=== PATIENT | male | born 1985 | race Caucasian/White ===

== ENCOUNTER 2016-12-27 07:51 | Emergency (ER) | payer MEDICARE, OTHER ==
[2016-12-27 08:01] VITALS: BP 161/101
[2016-12-27] MEDS ORDERED: COLCHICINE 0.6 MG TABLET PO ONE (08:25)
[2016-12-27] MEDS ORDERED: PREDNISONE 20 MG TABLET PO ONE (08:25)
[2016-12-27] MEDS ORDERED: HYDROCODONE/ACETAMINOPHEN 5-325 MG 6 TAB/DSPK PO PRN (08:26)
[2016-12-27] MEDS ORDERED: HYDROCODONE/ACETAMINOPHEN 5-325 MG TABLET PO ONE (08:26)
--- NOTE | 2016-12-27 08:26 | ER Document Report ---
ED Extremity Problem, Lower - General Mode of Arrival: Ambulatory Information source: Patient TRAVEL OUTSIDE OF THE [place] IN LAST 30 DAYS: No - HPI Patient complains to provider of: Pain, Swelling - bilateral lower feet and ankles Location: Ankle - bilateral, Foot - bilateral Occurred: Last week Context: Other - see notes above Associated symptoms: Other - see notes above - General Chief Complaint: Swelling of Lower Extremity Stated Complaint: FOOT PAIN Notes: 31 year old male with history of gout and unmedicated hypertension presents to the ED complaining of throbbing pain and swelling to the bilateral ankles and feet that started 1 week ago. Patient is concerned that this is a gout attack and states that his left foot and ankle are worse than his right. Patient does not have a primary care provider and is not on any medication for gout or hypertension. Patient additionally complains to diarrhea. (CHUYITA LUGO) - Related Data Allergies/Adverse Reactions: sertraline HCl [From Zoloft] Allergy (Severe, Verified 09/11/16 09:59) Past Medical History - General Information source: Patient - Social History Smoking Status: Unknown if Ever Smoked Family History: Reviewed & Not Pertinent Patient has suicidal ideation: No Patient has homicidal ideation: No - Past Medical History Cardiac Medical History: Reports: Hx Hypertension - unmedicated Renal/ Medical History: Denies: Hx Peritoneal Dialysis Musculoskeltal Medical History: Reports Hx Gout Psychiatric Medical History: Reports: Hx Bipolar Disorder, Hx Depression, Hx Schizoaffective Disorder, Hx Schizophrenia Past Surgical History: Reports: Hx Orthopedic Surgery - Lumbar back surgery, patient does not know what the specific procedure was. - Immunizations Hx Diphtheria, Pertussis, Tetanus Vaccination: No - unknown Review of Systems - Review of Systems Constitutional: No symptoms reported EENT: No symptoms reported Cardiovascular: No symptoms reported Respiratory: No symptoms reported Gastrointestinal: No symptoms reported Genitourinary: No symptoms reported Male Genitourinary: No symptoms reported Musculoskeletal: See HPI, Gout, Joint pain - bilateral ankles, Joint swelling - bilateral ankles, Other - bilateral feet pain and swelling Skin: No symptoms reported Hematologic/Lymphatic: No symptoms reported Neurological/Psychological: No symptoms reported -: Yes All other systems reviewed and negative Physical Exam - General General appearance: Alert In distress: None - HEENT Head: Normocephalic, Atraumatic Eyes: Normal Extraocular movements intact: Yes Pupils: PERRL - Respiratory Respiratory status: No respiratory distress Breath sounds: Normal - Cardiovascular Rhythm: Regular Heart sounds: Normal auscultation - Abdominal Inspection: Obese - Back Back: Normal - Extremities General upper extremity: Normal inspection, Normal ROM General lower extremity: No: Normal inspection - see ankle and foot exam below Ankle: Tender - Bilateral ankle tenderness. Left ankle is more tender than right., Edema - Bilateral ankle swelling. Left ankle is more swollen than right. , Other - Erythema to the bilateral ankles; left greater than right.. No: Normal Foot: Tender - Tender of the bilateral dorsal feet. Left greater than right., Edema - Swelling to the bilateral feet with notable swelling to the 1st left MTP joint. Left greater than right., Other. No: Normal - Neurological Neuro grossly intact: Yes - Psychological Associated symptoms: Normal affect, Normal mood - Skin Skin Temperature: Warm Skin Moisture: Dry Skin Color: Normal - Vital signs Vitals: Temp Pulse Resp BP Pulse Ox 99.2 F 112 H 18 161/101 H 98 12/27/16 07:58 12/27/16 07:58 12/27/16 07:58 12/27/16 07:58 12/27/16 07:58 Discharge - Discharge Clinical Impression: Gout attack Qualifiers: Gout site: multiple sites Gout etiology: unspecified cause Qualified Code(s): M10.9 - Gout, unspecified Additional Instructions: Gout: You have been diagnosed as having gout. Gout is a problem caused by an excess of uric acid, a natural chemical found in the body. The cause of this disease is unknown. Gout arthritis occurs when crystals of uric acid form in the joints. The big toe is the most common joint involved, but any joint can become affected. Persons with gout may also form uric acid kidney stones, resulting in flank pain and blood in the urine. Nodules of uric acid may form under the skin. The first step of treatment is to decrease the inflammation in the joint with antiinflammatory medication. Medication to lower the uric acid level in the blood may then be prescribed. This medication should be taken regularly, as any sudden change in dosage may provoke an attack of gout. Some foods, such as red meat, can provoke an attack in some gout sufferers. Call the doctor if new symptoms arise, or if you do not improve. High Blood Pressure, Requiring Treatment: Your blood pressure is high. This is called "hypertension." You need treatment of your blood pressure. Pre-hypertension/Hypertension: The patient has been informed that they may have pre-hypertension or Hypertension based on a blood pressure reading in the emergency department. I recommend that the patient call the primary care provider listed on their dischargge instructions or a physician of their choice this wee to arrage follow up for further evaluation of possible pre- hypertension or Hypertension. If left untreated, high blood pressure greatly increases your risk of heart attack and stroke. Please don't ignore this problem. If you have blood pressure medicine but aren't using it regularly, start taking it again. Some simple things you can do to help are: Get some aerobic exercise for at least 20 minutes on a daily basis. (See your doctor before beginning any new exercise program.) Eat a low-fat diet. Lose excess weight. Avoid salty foods and avoid adding salt to any of the foods you eat. Avoid diet pills, decongestants, "energizing" herbs, and other medicines that elevate blood pressure. There are many different medicines that treat blood pressure. If your medication causes unpleasant side effects, call your doctor. There are others you can try. Treating hypertension is a life-long investment in your health. TAKE THE MEDICATION PRESCRIBED--START THE PREDNISONE TOMORROW MORNING. TAKE MOTRIN OR ALEVE FOR PAIN. TAKE THE PAIN MEDICATION DISPENSED TODAY IF NEEDED. DRINK PLENTY OF WATER. ELEVATE THE FEET AND LIMIT WALKING. FOLLOW UP WITH A LOCAL PRIMARY CARE PROVIDER TO TREAT YOUR GOUT AND HIGH BLOOD PRESSURE. RETURN TO THE EMERGENCY ROOM IF ANY NEW OR WORSENING SYMPTOMS. Prescriptions: Prednisone [Deltasone 10 mg Tablet] 10 mg PO ASDIR PRN #21 tablet PRN Reason: Akbaribe Attestation: 12/27/16 08:31 I personally performed the services described in the documentation, reviewed and edited the documentation which was dictated to the scribe in my presence, and it accurately records my words and actions. (BATSHEVA KHOURY) Scott Documentation - Scribe Written by Scott:: Scott Kumar, 12/27/2016 0848 acting as scribe for :: Chandrika
== END 2016-12-27 08:40 | disposition home or self-care (01) ==
LOC: ER 07:51
DX: M10.9 Gout, unspecified (principal); M79.89 Other specified soft tissue disorders; M79.672 Pain in left foot; R19.7 Diarrhea, unspecified; I10 Essential (primary) hypertension
CPT/HCPCS: 99283; A9270 ×4; J7512

== ENCOUNTER 2017-05-04 08:30 | Emergency (ER) | payer MEDICARE, MEDICAID ==
[2017-05-04 09:23] LABS: ABSOLUTE BASOPHILS # (AUTO) 0.1 10^3/uL (0.0-0.2); ABSOLUTE EOSINOPHILS # (AUTO) 0.4 10^3/uL (0.0-0.6); ABSOLUTE NEUT (AUTO) 9.8 10^3/uL (1.7-8.2); BASOPHILS % (AUTO) 0.4 % (0-2); EOSINOPHILS % (AUTO) 2.6 % (0-6); HEMATOCRIT 45.2 % (37.9-51.0); HEMOGLOBIN 15.3 g/dL (13.5-17.0); HGB HCT DIFFERENCE 0.7; LYMPHOCYTES % (AUTO) 30.6 % (13-45); MEAN CORPUSCULAR HEMOGLOBIN 29.5 pg (27.0-33.4); MEAN CORPUSCULAR HGB CONC 33.7 g/dL (32.0-36.0); MEAN CORPUSCULAR VOLUME 87 fl (80-97); MONOCYTES % (AUTO) 6.1 % (3-13); RED BLOOD COUNT 5.18 10^6/uL (4.35-5.55); RED CELL DISTRIBUTION WIDTH 13.5 % (11.5-14.0); SEGMENTED NEUTROPHILS % (AUTO) 60.3 % (42-78); WHITE BLOOD COUNT 16.3 10^3/uL (4.0-10.5)
[2017-05-04 09:30] LABS: APPEARANCE,URINE CLEAR; BILIRUBIN,URINE NEGATIVE (NEGATIVE); GLUCOSE, URINE NEGATIVE (NEGATIVE); KETONES,URINE NEGATIVE (NEGATIVE); LEUKOCYTE ESTERASE,URINE NEGATIVE (NEGATIVE); NITRITE,URINE NEGATIVE (NEGATIVE); PROTEIN,URINE 30 mg/dL (NEGATIVE); URINE SPECIFIC GRAVITY 1.003; UROBILINOGEN,URINE NEGATIVE mg/dL (<2.0)
[2017-05-04 09:49] LABS: ANION GAP 11 (5-19); BLOOD UREA NITROGEN 12 mg/dL (7-20); CARBON DIOXIDE 24 mmol/L (22-30); CHLORIDE 104 mmol/L (98-107); CREATINE KINASE 178 U/L (55-170); GLUCOSE 99 mg/dL (75-110); POTASSIUM 4.1 mmol/L (3.6-5.0); SODIUM 138.6 mmol/L (137-145)
--- NOTE | 2017-05-04 10:33 | RADIOLOGY REPORT (SQ) ---
EXAM DESCRIPTION: CT ABD/PELVIS NO ORAL OR IV COMPLETED DATE/TIME: 05/04/2017 10:11 am REASON FOR STUDY: flank pain COMPARISON: None. TECHNIQUE: CT scan of the abdomen and pelvis performed without intravenous or oral contrast. Images reviewed with lung, soft tissue, and bone windows. Reconstructed coronal and sagittal MPR images revi ewed. All images stored on PACS. All CT scanners at this facility use dose modulation, iterative reconstruction, and/or weight based d osing when appropriate to reduce radiation dose to as low as reasonably achievable (ALARA). [facility]: Dose Right [facility]: CareDose [facility]: Dose Right [facility]: Teradose 4D [facility]: Smart Acrolinx RADIATION DOSE: Up-to-date CT equipment and radiation dose reduction techniques were employed. CTDIv ol: 20.8 mGy. DLP: 1233 mGy-cm.mGy. LIMITATIONS: None. FINDINGS: LOWER CHEST: No significant findings. No nodules or infiltrates. NON-CONTRASTED LIVER, SPLEEN, ADRENALS: Evaluation limited by lack of IV contrast. No identified sign ificant masses. PANCREAS: No masses. No peripancreatic inflammatory changes. GALLBLADDER: No identified stones by CT criteria. No inflammatory changes to suggest cholecystitis. RIGHT KIDNEY AND URETER: No solid masses. No significant calcification. No hydronephrosis or hydroure ter. LEFT KIDNEY AND URETER: No solid masses. No significant calcification. No hydronephrosis or hydrouret er. AORTA AND RETROPERITONEUM: No aneurysm. No retroperitoneal masses or adenopathy. BOWEL AND PERITONEAL CAVITY: No obvious masses or inflammatory changes. No free fluid. APPENDIX: Normal. PELVIS, BLADDER, AND ABDOMINAL WALL:The urinary bladder is normal. The prostate gland and seminal ve sicles are unremarkable. BONES: No significant findings. OTHER: No other significant finding. IMPRESSION: NO SIGNIFICANT OR ACUTE PROCESS IN THE ABDOMEN OR PELVIS. THERE ARE NO FINDINGS THAT EX PLAIN THE PATIENT'S SYMPTOMS. TECHNICAL DOCUMENTATION: JOB ID: [id number] Quality ID # [id number]: Final reports with documentation of one or more dose reduction techniques (e.g., Au tomated exposure control, adjustment of the mA and/or kV according to patient size, use of iterative reconstruction technique) 2010 [employer]- All Rights Reserved
[2017-05-04] MEDS ORDERED: CEFTRIAXONE INJ 250 MG VIAL IM ONE (10:43)
[2017-05-04] MEDS ORDERED: AZITHROMYCIN 250 MG TABLET PO ONE (10:44)
--- NOTE | 2017-05-04 10:52 | ER Document Report ---
ED General - General Chief Complaint: Flank Pain Stated Complaint: FLANK PAIN/URINARY ISSUES Time Seen by Provider: 05/04/17 09:19 Mode of Arrival: Ambulatory Information source: Patient - 2-3 days dysuria low back pain, no fever vomiting or history uti, kidney stones, or known std TRAVEL OUTSIDE OF THE [place] IN LAST 30 DAYS: No - HPI Onset: Other Onset/Duration: Gradual Quality of pain: Achy, Burning Severity: Mild Associated symptoms: denies: Chest pain, Nonproductive cough, Productive cough, Diarrhea, Fever, Nausea, Vomiting, Weakness Similar symptoms previously: No - Related Data Allergies/Adverse Reactions: sertraline HCl [From Zoloft] Allergy (Severe, Verified 09/11/16 09:59) Past Medical History - Social History Smoking Status: Never Smoker Chew tobacco use (# tins/day): No Frequency of alcohol use: None Drug Abuse: None Family History: Reviewed & Not Pertinent Patient has suicidal ideation: No Patient has homicidal ideation: No - Past Medical History Cardiac Medical History: Reports: Hx Hypertension - unmedicated Renal/ Medical History: Denies: Hx Peritoneal Dialysis Musculoskeltal Medical History: Reports Hx Gout Psychiatric Medical History: Reports: Hx Bipolar Disorder, Hx Depression, Hx Schizoaffective Disorder, Hx Schizophrenia Past Surgical History: Reports: Hx Orthopedic Surgery - Lumbar back surgery, patient does not know what the specific procedure was. - Immunizations Hx Diphtheria, Pertussis, Tetanus Vaccination: No - unknown Review of Systems - Review of Systems Constitutional: No symptoms reported Cardiovascular: No symptoms reported Respiratory: No symptoms reported Gastrointestinal: No symptoms reported Genitourinary: Burning, Dysuria Male Genitourinary: denies: Erectile dysfunction, Testicular pain, Penile discharge Musculoskeletal: No symptoms reported Skin: No symptoms reported Neurological/Psychological: No symptoms reported Physical Exam - Vital signs Vitals: Temp Pulse Resp BP Pulse Ox 97.5 F 73 20 142/98 H 97 05/04/17 08:42 05/04/17 08:42 05/04/17 08:42 05/04/17 08:42 05/04/17 08:42 - General General appearance: Appears well, Alert In distress: None - Respiratory Respiratory status: No respiratory distress Breath sounds: Normal Chest palpation: Normal - Cardiovascular Rhythm: Regular Heart sounds: Normal auscultation Murmur: No - Abdominal Inspection: Normal Distension: No distension. No: Distended bladder Bowel sounds: Normal Tenderness: Nontender. No: Tender, McBurney's point, Gonzalez's sign, Guarding, Rebound Organomegaly: No: No organomegaly - Back Back: Normal, Nontender. No: Deformity/step-off, CVA tenderness, Vertebra tenderness - Skin Skin Temperature: Warm Skin Moisture: Dry Skin Color: Normal Course - Re-evaluation Re-evalutation: 05/04/17 10:54 Patient presents emergency department with 2-3 day history of bilateral low back pain and dysuria. He states it is burning when he pees. He denies any history of urinary tract infection kidney stone or sexually transmitted diseases previously. He has no fever abdominal pain nausea vomiting diarrhea or anorexia and is actually requesting food on exam. Denies any previous ureteral tracker abdominal surgery. Is well-appearing nontoxic and afebrile on examination with no acute abdominal guarding rebound rigidity pulsatile masses reproducible flank or back tenderness and no neurological vascular deficits. White count slightly elevated urine trace blood no leukocyte esterase. GC chlamydia is pending. Electrolytes are normal lipase is normal. CT scan is nonacute. Differential diagnosis possible urethritis start him on Rocephin Zithromax. No acute clinical concerns for surgical abdomen. Gave him family doctor for follow-up in 1224 hrs. and discussed reasons for ED return sooner - Vital Signs Vital signs: Temp Pulse Resp BP Pulse Ox 97.5 F 73 20 142/98 H 97 05/04/17 08:42 05/04/17 08:42 05/04/17 08:42 05/04/17 08:42 05/04/17 08:42 - Laboratory Result Diagrams: 05/04/17 09:05 05/04/17 09:05 Laboratory results interpreted by me: 05/04/17 05/04/17 05/04/17 09:05 09:05 09:05 WBC 16.3 H Absolute Neutrophils 9.8 H Absolute Lymphocytes 5.0 H Creatine Kinase 178 H Urine Protein 30 H Urine Blood SMALL H Discharge - Discharge Clinical Impression: Dysuria Low back pain Qualifiers: Chronicity: unspecified Back pain laterality: unspecified Sciatica presence: without sciatica Qualified Code(s): M54.5 - Low back pain Condition: Stable Disposition: HOME, SELF-CARE Additional Instructions: dysuria (burning with urination) Urethritis You have possible urethritis, an infection of the urethra. The usual symptoms are pain on urination and discharge. The infection is often caused by gonorrhea or chlamydia. Treatment is antibiotics. In addition, any sexual contacts should be evaluated by a physician as soon as possible. As this infection can be transmitted sexually, refrain from sexual activity until the infection is confirmed as healed by your physician. If gonorrhea or chlamydia is found on culture, the health department must be notified. Call the doctor at once if you develop difficulty passing your urine, high fever, rash, joint swelling, or other new symptoms. Low Back Pain Three out of every four people will have an episode of disabling back pain during their lifetime. Most commonly the pain is due to straining of the muscles and ligaments in the low back. Usual treatment includes: (1) Rest on a firm surface. Avoid lying on your stomach. (2) Ice pack the painful area. After a few days, gentle heat may be used intermittently to relax the area, or ice packs can be continued. (3) Medication may be needed -- muscle relaxers and antiinflammatory medicines are commonly used. (4) As the back improves, exercises are prescribed to strengthen the back and abdominal muscles. Your doctor will advise you on the proper care for your back at each stage in your recovery. You may be better in a few days -- or healing may take several weeks. If new symptoms of a "herniated disc" (radiation of pain, numbness, or tingling down the back of the leg or weakness in the leg) occur, you should be re-examined. Further testing may be necessary. Referrals: [facility] [Provider Group] (in 2-3 days return to er sooner for increasing worsening or new symptoms)
[2017-05-04 11:04] VITALS: BP 140/90
[2017-05-04 12:22] LABS: CHLAM PCR NOT DETECTED (NOT DETECT)
== END 2017-05-04 11:04 | disposition home or self-care (01) ==
LOC: ER 08:30
DX: R30.0 Dysuria (principal); M54.5 Low back pain; R10.9 Unspecified abdominal pain; I10 Essential (primary) hypertension
CPT/HCPCS: 99284; 96372; 36415; 87086; 82553; 82550; 83690; 80178; 85025; 80048; 81001; 87491; 87591; 74176; A9270; J0696

== ENCOUNTER → 2018-04-05 | Outpatient (CLI) | payer MEDICARE ==
[2018-04-05 07:49] LABS: ABSOLUTE BASOPHILS # (AUTO) 0.1 10^3/uL (0.0-0.2); ABSOLUTE EOSINOPHILS # (AUTO) 0.4 10^3/uL (0.0-0.6); ABSOLUTE LYMPHOCYTES (AUTO) 4.8 10^3/uL (0.5-4.7); ABSOLUTE NEUT (AUTO) 10.3 10^3/uL (1.7-8.2); BASOPHILS % (AUTO) 0.6 % (0-2); EOSINOPHILS % (AUTO) 2.6 % (0-6); HEMATOCRIT 42.6 % (37.9-51.0); HEMOGLOBIN 14.3 g/dL (13.5-17.0); LYMPHOCYTES % (AUTO) 28.8 % (13-45); MEAN CORPUSCULAR HEMOGLOBIN 29.3 pg (27.0-33.4); MEAN CORPUSCULAR HGB CONC 33.5 g/dL (32.0-36.0); MEAN CORPUSCULAR VOLUME 87 fl (80-97); MONOCYTES % (AUTO) 5.9 % (3-13); PLATELET COUNT 397 10^3/uL (150-450); RED BLOOD COUNT 4.87 10^6/uL (4.35-5.55); RED CELL DISTRIBUTION WIDTH 13.5 % (11.5-14.0); SEGMENTED NEUTROPHILS % (AUTO) 62.1 % (42-78); TOTAL CELLS COUNTED % (AUTO) 100 %; WHITE BLOOD COUNT 16.6 10^3/uL (4.0-10.5)
[2018-04-05 08:31] LABS: ALANINE AMINOTRANSFERASE 26 U/L (21-72); ALBUMIN 3.6 g/dL (3.5-5.0); ALKALINE PHOSPHATASE 71 U/L (38-126); ANION GAP 12 (5-19); ASPARTATE AMINO TRANSFERASE 19 U/L (17-59); BILIRUBIN,DIRECT 0.3 mg/dL (0.0-0.4); BILIRUBIN,TOTAL 0.3 mg/dL (0.2-1.3); BLOOD UREA NITROGEN 14 mg/dL (7-20); CALCIUM 9.7 mg/dL (8.4-10.2); CARBON DIOXIDE 22 mmol/L (22-30); CHLORIDE 110 mmol/L (98-107); CHOLESTEROL 188.65 mg/dL (0-200); GLUCOSE 102 mg/dL (75-110); SODIUM 143.6 mmol/L (137-145); TOTAL PROTEIN 7.1 g/dL (6.3-8.2); TRIGLYCERIDES 385 mg/dL (<150)
[2018-04-05 08:42] LABS: DIRECT LDL 106 mg/dL (<100)
[2018-04-05 08:47] LABS: FREE T4 (FREE THYROXINE) 0.88 ng/dL (0.78-2.19)
[2018-04-05 09:01] LABS: THYROID STIMULATING HORMONE 5.73 uIU/mL (0.47-4.68)
[2018-04-05 09:16] LABS: LITHIUM 1.5 mEq/L (0.6-1.2)
== END ==
LOC: LAB 07:33
PROVIDERS: ATTEND Physician Assistant
DX: F31.2 Bipolar disorder, current episode manic severe with psychotic features (principal); Z79.899 Other long term (current) drug therapy
CPT/HCPCS: 36415; 80053; 80061; 80178; 84439; 84443; 85025

== ENCOUNTER 2018-04-14 07:50 | Inpatient (IN) | payer MEDICARE ==
[2018-04-14] MEDS ORDERED: COLCHICINE 0.6 MG TABLET PO ONE ×2 (08:30→14:00)
--- NOTE | 2018-04-14 08:30 | ER Document Report ---
ED General - General Chief Complaint: Foot Pain Stated Complaint: FOOT PAIN Time Seen by Provider: 04/14/18 08:28 Mode of Arrival: Ambulatory Information source: Patient TRAVEL OUTSIDE OF THE [place] IN LAST 30 DAYS: No - HPI Notes: 32-year-old male with a medical history of bipolar disorder with schizophrenia, schizoaffective affective disorder, schizophrenia and gout presents to the ED with complaints of left foot pain and swelling that started yesterday with knee pain that started a week prior. Patient reports pain is 8 out of 10 when he is walking on it, reports pain is throbbing. Tried Aleve without any relief. Patient is a smoker. States that he is having a gout flare but does not have any medications for it. Patient states he has not had a gout flare in "years". Reports he felt chills last night. Patient does not have a primary care doctor. Denies chest pain,palpitations, shortness of breath, dyspnea, nausea, vomiting, diarrhea, abdominal pain, hematuria,blurred vision, double vision, loss of vision, speech changes, LH, dizziness, syncope, headaches, wheezing, ST , URI, neck pain, weakness, bowel or bladder dysfunction, saddle anesthesia, numbness or tingling in bilateral upper or lower extremities equally, muscle paralysis, weakness in bilateral upper or lower extremities equally or rash. Denies IV drug use. - Related Data Allergies/Adverse Reactions: sertraline HCl [From Zoloft] Allergy (Severe, Verified 04/14/18 07:54) Past Medical History - General Information source: Patient - Social History Smoking Status: Current Every Day Smoker Family History: Reviewed & Not Pertinent - Past Medical History Cardiac Medical History: Reports: Hx Hypertension - unmedicated Renal/ Medical History: Denies: Hx Peritoneal Dialysis Musculoskeletal Medical History: Reports Hx Gout Psychiatric Medical History: Reports: Hx Bipolar Disorder, Hx Depression, Hx Schizoaffective Disorder, Hx Schizophrenia Past Surgical History: Reports: Hx Orthopedic Surgery - Lumbar back surgery, patient does not know what the specific procedure was. - Immunizations Hx Diphtheria, Pertussis, Tetanus Vaccination: No - unknown Review of Systems - Review of Systems Constitutional: See HPI EENT: No symptoms reported Cardiovascular: No symptoms reported Respiratory: No symptoms reported Gastrointestinal: No symptoms reported Genitourinary: No symptoms reported Male Genitourinary: No symptoms reported Musculoskeletal: See HPI, Gout, Joint pain Skin: See HPI, Change in color Hematologic/Lymphatic: No symptoms reported Neurological/Psychological: No symptoms reported Physical Exam - Vital signs Vitals: Temp Pulse Resp BP Pulse Ox 98.3 F 109 H 18 137/92 H 97 04/14/18 07:54 04/14/18 07:54 04/14/18 07:54 04/14/18 07:54 04/14/18 07:54 - Notes Notes: PHYSICAL EXAMINATION: GENERAL: Well-appearing, well-nourished and in no acute distress. HEAD: Atraumatic, normocephalic. EYES: Pupils equal round and reactive to light, extraocular movements intact, sclera anicteric, conjunctiva are normal. ENT: Nares patent, oropharynx clear without exudates. Moist mucous membranes. NECK: Normal range of motion, supple without lymphadenopathy LUNGS: Breath sounds clear to auscultation bilaterally and equal. No wheezes rales or rhonchi. HEART: Regular rate and rhythm without murmurs ABDOMEN: Soft, nontender, nondistended abdomen. No guarding, no rebound. No masses appreciated. Musculoskeletal: Normal range of motion, no pitting or edema. Left foot with STS and tenderness on all metatarsal bones with palpation that extends up to left distal calf. Skin warm to touch. Negative Kavanel's sign to left foot. unable to palpate a step-off. No open lesions. squeeze test negative. dtr +2 BLE. Limited APROM. distal pulses + 2 in BUE. full motor and sensory function. No vascular compromise. Ankle exam within normal limits. No noted lacerations, lesions, ulcers or break in the skin. NEUROLOGICAL: Cranial nerves grossly intact. Normal speech, normal gait. Normal sensory, motor exams PSYCH: Normal mood, normal affect. SKIN: Warm, Dry, normal turgor, no rashes or lesions noted. Course - Re-evaluation Re-evalutation: 04/14/18 11:50 32-year-old male presents to ED with left foot and leg erythema, tenderness 1 day. Patient's heart rate is elevated at 109, afebrile and in no distress. Patient feels that he is having a gout flare. CBC shows a white blood cell count of 16.7 with shift. CRP 63.4. Uric acid is 11.4. Glucose is 106. X- ray left foot negative for any acute fracture, dislocation or osteomyelitis per radiology. Patient appears to have a soft tissue cellulitis in left lower extremity 2 g of cefazolin given IV. Due to the fact that the patient does not have primary care provider close follow-up for cellulitis of extremity, will admit to inpatient medical floor for IV antibiotics. Consulted guarding pertinent laboratory diagnostic and clinical results with Dr. Thelma Figueroa at 1200 and he will admit patient for IV antibiotics for cellulitis to medical floor. Patient verbalized understanding of this plan of care and agree with plan of care. All questions and concerns answered 04/14/18 17:01 - Vital Signs Vital signs: Temp Pulse Resp BP Pulse Ox 98.2 F 107 H 18 112/72 95 04/14/18 16:04 04/14/18 16:04 04/14/18 16:04 04/14/18 16:04 04/14/18 16:04 - Laboratory Result Diagrams: 04/14/18 08:35 04/14/18 08:35 Laboratory results interpreted by me: 04/14/18 04/14/18 04/14/18 08:35 08:35 08:35 WBC 16.7 H Hgb 13.3 L Absolute Neutrophils 11.7 H Uric Acid 11.7 H C-Reactive Protein 63.4 H Salicylates < 1.0 L Discharge - Discharge Clinical Impression: Cellulitis Qualifiers: Site of cellulitis: extremity Site of cellulitis of extremity: lower extremity Laterality: left Qualified Code(s): L03.116 - Cellulitis of left lower limb Gout Qualifiers: Gout site: foot Gout etiology: unspecified cause Condition: Stable Disposition: ADMITTED INPATIENT Admitting Provider: Hospitalist - Dr. Thelma Jimenez Unit Admitted: Medical Floor
[2018-04-14] MEDS ORDERED: PREDNISONE 20 MG TABLET PO ONE (08:34)
[2018-04-14 08:59] LABS: ABSOLUTE BASOPHILS # (AUTO) 0.1 10^3/uL (0.0-0.2); ABSOLUTE EOSINOPHILS # (AUTO) 0.4 10^3/uL (0.0-0.6); ABSOLUTE LYMPHOCYTES (AUTO) 3.4 10^3/uL (0.5-4.7); ABSOLUTE MONOCYTES (AUTO) 1.2 10^3/uL (0.1-1.4); ABSOLUTE NEUT (AUTO) 11.7 10^3/uL (1.7-8.2); BASOPHILS % (AUTO) 0.4 % (0-2); EOSINOPHILS % (AUTO) 2.2 % (0-6); HEMATOCRIT 39.3 % (37.9-51.0); HEMOGLOBIN 13.3 g/dL (13.5-17.0); LYMPHOCYTES % (AUTO) 20.2 % (13-45); MEAN CORPUSCULAR HEMOGLOBIN 29.8 pg (27.0-33.4); MEAN CORPUSCULAR HGB CONC 33.9 g/dL (32.0-36.0); MEAN CORPUSCULAR VOLUME 88 fl (80-97); MONOCYTES % (AUTO) 7.2 % (3-13); PLATELET COUNT 399 10^3/uL (150-450); RED BLOOD COUNT 4.47 10^6/uL (4.35-5.55); RED CELL DISTRIBUTION WIDTH 13.4 % (11.5-14.0); TOTAL CELLS COUNTED % (AUTO) 100 %; WHITE BLOOD COUNT 16.7 10^3/uL (4.0-10.5)
--- NOTE | 2018-04-14 09:03 | RADIOLOGY REPORT (SQ) ---
EXAM DESCRIPTION: FOOT LEFT COMPLETE COMPLETED DATE/TIME: 04/14/2018 8:53 am REASON FOR STUDY: L foot pain, r/o fb, fx, osteo COMPARISON: None. NUMBER OF VIEWS: Three views. TECHNIQUE: AP, lateral and oblique without weight bearing radiographic images acquired of the left f oot. LIMITATIONS: None. FINDINGS: MINERALIZATION: Normal. BONES: No acute fracture or dislocation. No worrisome bone lesions. Mild joint space narrowing with m inimal osteophytes in the 1st metatarsal phalangeal joint. JOINTS: No erosions. No oliver-articular osteopenia. No chondrocalcinosis. SOFT TISSUES: No swelling. No calcifications. OTHER: No other significant finding. IMPRESSION: MILD DEGENERATIVE CHANGES IN THE 1ST METATARSAL PHALANGEAL JOINT. NO EROSIONS. NO OTHE R SIGNIFICANT FINDINGS. TECHNICAL DOCUMENTATION: JOB ID: [id number] [employer]- All Rights Reserved Reading location - IP/workstation name: [facility]
[2018-04-14 09:20] LABS: ALANINE AMINOTRANSFERASE 25 U/L (21-72); ALKALINE PHOSPHATASE 78 U/L (38-126); ANION GAP 12 (5-19); ASPARTATE AMINO TRANSFERASE 17 U/L (17-59); BILIRUBIN,DIRECT 0.3 mg/dL (0.0-0.4); BILIRUBIN,TOTAL 0.8 mg/dL (0.2-1.3); BLOOD UREA NITROGEN 15 mg/dL (7-20); C-REACTIVE PROTEIN 63.4 mg/L (<10.0); CALCIUM 9.9 mg/dL (8.4-10.2); CARBON DIOXIDE 24 mmol/L (22-30); CHLORIDE 106 mmol/L (98-107); GLUCOSE 106 mg/dL (75-110); POTASSIUM 4.3 mmol/L (3.6-5.0); TOTAL PROTEIN 7.4 g/dL (6.3-8.2); URIC ACID 11.7 mg/dL (3.5-8.5)
[2018-04-14] MEDS ORDERED: CEFAZOLIN 2 GM/D5W RTU 2 GM/50 ML RTUPB IV ONE (11:36)
--- NOTE | 2018-04-14 12:23 | PDOC H&P ---
History of Present Illness Admission Date/PCP: OLIVIER SANTIAGO PA-C History of Present Illness: HENRY NEIL is a 32 year old male patient with past medical history of bipolar disorder, schizophrenia, gout and tobacco dependence presented with 2 days history of left leg pain. He reports the pain is precipitated by walking. He denies any fever, chills, palpitation or diaphoresis. He states his count is in remission and he has not had attack in years. No headache, dizziness or blurring of vision. No nausea, vomiting, abdominal pain or diarrhea. His blood work shows leukocytosis with white cell count of 16.7 and elevated uric acid of 11.7. Past Medical History Cardiac Medical History: Reports: Hypertension - unmedicated Musculoskeltal Medical History: Reports: Gout Psychiatric Medical History: Reports: Bipolar Disorder, Depression, Schizoaffective Disorder Past Surgical History Past Surgical History: Reports: Orthopedic Surgery - Lumbar back surgery, patient does not know what the specific procedure was. Social History Smoking Status: Current Every Day Smoker Frequency of Alcohol Use: Occasional Hx Recreational Drug Use: No Hx Prescription Drug Abuse: No - Advance Directive Resuscitation Status: Full Code Family History Family History: Reviewed & Not Pertinent Parental Family History Reviewed: Yes Children Family History Reviewed: Yes Sibling(s) Family History Reviewed.: Yes Medication/Allergy Home Medications: Paroxetine HCl [Paxil] 30 mg PO QAM 02/05/13 [place] Carbonate 900 mg PO BID 03/14/14 Quetiapine Fumarate [Seroquel Xr] 300 mg PO QHS 03/14/14 Lorazepam [Ativan 1 mg Tablet] 1 tab PO PRN PRN 03/16/15 Ziprasidone HCl 60 mg PO BID 03/16/15 Quetiapine Fumarate [Seroquel 100 mg Tablet] 150 mg PO QHS 7 Days tablet Quetiapine Fumarate [Seroquel] 150 mg PO DAILY 05/26/15 Zaleplon [Sonata] 10 mg PO DAILY 05/26/15 Ziprasidone HCl [Geodon 20 Mg Capsule] 20 mg PO DAILY 7 Days capsule 05/26/15 Hydrocodone/Acetaminophen [[place] 5-325 mg Tablet] 1 tab PO Q4 PRN #12 tablet Indomethacin [Indocin 50 mg Capsule] 50 mg PO TID #21 capsule 08/07/16 Indomethacin [Indocin 25 mg Capsule] 25 mg PO BIDP PRN #14 capsule 09/11/16 Methylprednisolone [Medrol Dosepack (4 mg/Tab) 21 Tab/Dosepak] 4 mg PO ASDIR PRN #21 tab.ds.pk 09/11/16 Prednisone [Deltasone 10 mg Tablet] 10 mg PO ASDIR PRN #21 tablet 12/27/16 Allergies/Adverse Reactions: sertraline HCl [From Zoloft] Allergy (Severe, Verified 04/14/18 07:54) Review of Systems Constitutional: ABSENT: chills, fever(s), headache(s), weight gain, weight loss Eyes: ABSENT: visual disturbances Ears: ABSENT: hearing changes Cardiovascular: ABSENT: chest pain, dyspnea on exertion, edema, orthropnea, palpitations Respiratory: ABSENT: cough, hemoptysis Gastrointestinal: ABSENT: abdominal pain, constipation, diarrhea, hematemesis, hematochezia, nausea, vomiting Neurological: ABSENT: abnormal gait, abnormal speech, confusion, dizziness, focal weakness, syncope Psychiatric: ABSENT: anxiety, depression, homidical ideation, suicidal ideation Physical Exam Vital Signs: Temp Pulse Resp BP Pulse Ox 98.3 F 109 H 18 137/92 H 97 04/14/18 07:54 04/14/18 07:54 04/14/18 07:54 04/14/18 07:54 04/14/18 07:54 Intake & Output 04/13/18 04/14/18 04/15/18 06:59 06:59 06:59 Weight 133.9 kg General appearance: PRESENT: no acute distress, well-developed, well-nourished Head exam: PRESENT: atraumatic, normocephalic Eye exam: PRESENT: conjunctiva pink, EOMI, PERRLA. ABSENT: scleral icterus Ear exam: PRESENT: normal external ear exam Mouth exam: PRESENT: moist, tongue midline Neck exam: ABSENT: carotid bruit, JVD, lymphadenopathy, thyromegaly Respiratory exam: PRESENT: clear to auscultation jayjay. ABSENT: rales, rhonchi, wheezes Cardiovascular exam: PRESENT: RRR. ABSENT: diastolic murmur, rubs, systolic murmur Pulses: PRESENT: normal dorsalis pedis pul Vascular exam: PRESENT: normal capillary refill GI/Abdominal exam: PRESENT: normal bowel sounds, soft. ABSENT: distended, guarding, mass, organolmegaly, rebound, tenderness Rectal exam: PRESENT: deferred Extremities exam: PRESENT: full ROM, other - There is tenderness, swelling and erythema over the left ankle and the lower third of his leg. ABSENT: calf tenderness, clubbing, pedal edema Neurological exam: PRESENT: alert, awake, oriented to person, oriented to place , oriented to time, oriented to situation, CN II-XII grossly intact. ABSENT: motor sensory deficit Psychiatric exam: PRESENT: appropriate affect, normal mood. ABSENT: homicidal ideation, suicidal ideation Skin exam: PRESENT: dry, intact, warm. ABSENT: cyanosis, rash Results Laboratory Results: 04/14/18 08:35 04/14/18 08:35 04/14/18 04/14/18 08:35 08:35 WBC 16.7 H RBC 4.47 Hgb 13.3 L Hct 39.3 MCV 88 MCH 29.8 MCHC 33.9 RDW 13.4 Plt Count 399 Seg Neutrophils % 70.0 Lymphocytes % 20.2 Monocytes % 7.2 Eosinophils % 2.2 Basophils % 0.4 Absolute Neutrophils 11.7 H Absolute Lymphocytes 3.4 Absolute Monocytes 1.2 Absolute Eosinophils 0.4 Absolute Basophils 0.1 Sodium 142.0 Potassium 4.3 Chloride 106 Carbon Dioxide 24 Anion Gap 12 BUN 15 Creatinine 1.16 Est GFR ( Amer) > 60 Est GFR (Non-Af Amer) > 60 Glucose 106 Uric Acid 11.7 H Calcium 9.9 Total Bilirubin 0.8 AST 17 ALT 25 Alkaline Phosphatase 78 C-Reactive Protein 63.4 H Total Protein 7.4 Albumin 4.0 Impressions: Foot X-Ray 04/14/18 08:29 IMPRESSION: MILD DEGENERATIVE CHANGES IN THE 1ST METATARSAL PHALANGEAL JOINT. NO EROSIONS. NO OTHER SIGNIFICANT FINDINGS. Assessment & Plan - Diagnosis (1) Leukocytosis Qualifiers: Leukocytosis type: unspecified Qualified Code(s): D72.829 - Elevated white blood cell count, unspecified Is this a current diagnosis for this admission?: Yes Plan: Due to cellulitis (2) Left leg cellulitis Is this a current diagnosis for this admission?: Yes Plan: Patient has been started on clindamycin (3) Suspected gout flare Is this a current diagnosis for this admission?: Yes Plan: Patient has been started on colchicine (4) Bipolar disorder Is this a current diagnosis for this admission?: Yes Plan: Continue home medications (5) Schizophrenia in remission Is this a current diagnosis for this admission?: Yes Plan: Continue home medications (6) Tobacco dependence Is this a current diagnosis for this admission?: Yes Plan: Patient advised and encouraged to quit smoking.
[2018-04-14] MEDS ORDERED: NICOTINE 21 MG/24 HR PATCH.TD24 TD PRN (12:26)
[2018-04-14 13:09] LABS: SALICYLATE < 1.0 mg/dL (2.0-20.0)
[2018-04-14] MEDS: CLINDAMYCIN 600 MG/D5W RTU 600 MG/50 ML RTUPB IV SCH ×2 (14:15→21:36)
[2018-04-14] MEDS ORDERED: ONDANSETRON 4 MG TAB.RAPDIS PO PRN (16:03)
[2018-04-14] MEDS ORDERED: ACETAMINOPHEN 325 MG TABLET PO PRN (16:03)
[2018-04-14] MEDS ORDERED: (PENDING PHARMACY ID) (Zaleplon [Sonata] 10 MG) PO PRN (16:20)
[2018-04-14] MEDS ORDERED: LORAZEPAM 1 MG TABLET PO PRN (16:20)
[2018-04-14] MEDS: BUPROPION HCL 75 MG TABLET PO SCH (17:49)
[2018-04-14] MEDS: ZIPRASIDONE HCL 40 MG CAPSULE PO SCH (17:49)
[2018-04-14] MEDS: ENOXAPARIN SODIUM INJ 40 MG/0.4 ML DISP.SYRIN SUBCUT SCH (17:50)
[2018-04-14] MEDS: QUETIAPINE FUMARATE 25 MG TABLET PO SCH (17:50)
[2018-04-14] MEDS ORDERED: QUETIAPINE FUMARATE 50 MG PO SCH (18:00)
[2018-04-14] MEDS ORDERED: (PENDING PHARMACY ID) (Ziprasidone Hcl [Geodon] 80 MG) PO SCH (18:00)
[2018-04-14] MEDS: FAMOTIDINE 20 MG TABLET PO SCH (21:36)
[2018-04-14] MEDS ORDERED: LITHIUM CARBONATE 300 MG CAPSULE PO SCH (22:00)
[2018-04-14] MEDS ORDERED: (PENDING PHARMACY ID) (Lithium Carbonate [Lithium Carbonate Er] 900 MG) PO SCH (22:00)
--- NOTE | 2018-04-14 22:00 | EKG REPORT ---
SEVERITY:- NORMAL ECG - SINUS RHYTHM : Confirmed by: Shubham Hoffmann 14-Apr-2018 21:59:48
[2018-04-15] MEDS: ZIPRASIDONE HCL 40 MG CAPSULE PO SCH (05:09)
[2018-04-15] MEDS: QUETIAPINE FUMARATE 25 MG TABLET PO SCH (05:09)
[2018-04-15] MEDS: CLINDAMYCIN 600 MG/D5W RTU 600 MG/50 ML RTUPB IV SCH ×2 (05:09→13:14)
[2018-04-15] MEDS: BUPROPION HCL 75 MG TABLET PO SCH (05:11)
[2018-04-15 05:33] LABS: ABSOLUTE BASOPHILS # (AUTO) 0.1 10^3/uL (0.0-0.2); ABSOLUTE EOSINOPHILS # (AUTO) 0.3 10^3/uL (0.0-0.6); ABSOLUTE LYMPHOCYTES (AUTO) 5.9 10^3/uL (0.5-4.7); ABSOLUTE MONOCYTES (AUTO) 1.2 10^3/uL (0.1-1.4); ABSOLUTE NEUT (AUTO) 10.4 10^3/uL (1.7-8.2); BASOPHILS % (AUTO) 0.6 % (0-2); EOSINOPHILS % (AUTO) 1.8 % (0-6); HEMATOCRIT 38.3 % (37.9-51.0); HEMOGLOBIN 12.9 g/dL (13.5-17.0); MEAN CORPUSCULAR HEMOGLOBIN 29.8 pg (27.0-33.4); MEAN CORPUSCULAR HGB CONC 33.7 g/dL (32.0-36.0); MEAN CORPUSCULAR VOLUME 89 fl (80-97); MONOCYTES % (AUTO) 6.6 % (3-13); PLATELET COUNT 399 10^3/uL (150-450); RED BLOOD COUNT 4.33 10^6/uL (4.35-5.55); RED CELL DISTRIBUTION WIDTH 13.3 % (11.5-14.0); TOTAL CELLS COUNTED % (AUTO) 100 %
[2018-04-15 05:58] LABS: CHOLESTEROL 215.29 mg/dL (0-200); TRIGLYCERIDES 168 mg/dL (<150)
[2018-04-15 06:09] LABS: DIRECT LDL 140 mg/dL (<100)
[2018-04-15 06:13] LABS: VLDL CHOLESTEROL 33.6 mg/dL (10-31)
[2018-04-15] MEDS ORDERED: (PENDING PHARMACY ID) (Lithium Carbonate [Lithium Carbonate Er] 600 MG) PO SCH (08:00)
[2018-04-15] MEDS ORDERED: LITHIUM CARBONATE 300 MG CAPSULE PO SCH (08:00)
[2018-04-15] MEDS ORDERED: (PENDING PHARMACY ID) (Bupropion Hcl [Bupropion Xl] 150 MG) PO SCH (08:00)
--- NOTE | 2018-04-15 08:11 | XCELERA REPORT ---
[address] [address] Lower Extremity Venous Evaluation Name: HENRY NEIL Age: 32 yrs Gender: Male : 1985 Patient Status: Inpatient Patient Location: [address] [place], [place] [address] Study Date: 04/14/2018 01:50 PM Procedure: Color flow and duplex imaging of the veins of the left lower extremity as well as the right Common Femoral vein. Reason For Study: left leg swelling, erythema with sudden onset Ordering Physician: LUIS COX Performed By: Lyndsey Braswell Right Sided Venous Evaluation The right common femoral vein is fully compressible. Spontaneous and phasic flow is present in the right common femoral vein. Left Sided Venous Evaluation Normal vessel filling wall to wall, compression and augmentation as well as Colour flow down to the infrageniculate veins. Interpretation Summary No duplex evidence of DVT or obstruction in the left lower extremity nor in the right Common Femoral vein. : LUIS COX > Roverto Quiros
[2018-04-15] MEDS: ENOXAPARIN SODIUM INJ 40 MG/0.4 ML DISP.SYRIN SUBCUT SCH (09:09)
[2018-04-15] MEDS: FAMOTIDINE 20 MG TABLET PO SCH (09:09)
[2018-04-15] MEDS ORDERED: ZOLPIDEM TARTRATE 5 MG TABLET PO PRN (09:46)
[2018-04-15] MEDS ORDERED: COLCHICINE 0.6 MG TABLET PO SCH (10:00)
[2018-04-15] MEDS ORDERED: ONDANSETRON 4 MG TAB.RAPDIS PO PRN (10:00)
[2018-04-15 12:34] VITALS: BP 119/75
--- NOTE | 2018-04-15 12:46 | PDOC DISCHARGE SUMMARY ---
General - Admit/Disc Date/PCP Admission Date/Primary Care Provider: 04/14/18 12:22 OLIVIER SANTIAGO PA-C Discharge Date: 04/15/18 - Discharge Diagnosis (1) Leukocytosis Is this a current diagnosis for this admission?: Yes (2) Left leg cellulitis Is this a current diagnosis for this admission?: Yes (3) Suspected gout flare Is this a current diagnosis for this admission?: Yes (4) Bipolar disorder Is this a current diagnosis for this admission?: Yes (5) Schizophrenia in remission Is this a current diagnosis for this admission?: Yes (6) Tobacco dependence Is this a current diagnosis for this admission?: Yes - Additional Information Resuscitation Status: Full Code Prescriptions: Clindamycin HCl 300 mg PO Q8H #20 capsule Colchicine [Colchicine 0.6 mg Tablet] 0.6 mg PO DAILY #30 tablet Home Medications: Bupropion HCl [Bupropion Xl] 150 mg PO QAM 04/14/18 [place] Carbonate [[place] Carbonate ER] 600 mg PO QAM 04/14/18 [place] Carbonate [[place] Carbonate ER] 900 mg PO QHS 04/14/18 Lorazepam [Ativan 1 mg Tablet] 1 mg PO BIDP PRN 04/14/18 Quetiapine Fumarate [Quetiapine Fumarate ER] 50 mg PO BID 04/14/18 Zaleplon [Sonata] 10 mg PO HSP PRN 04/14/18 Ziprasidone HCl [Geodon] 80 mg PO BID 04/14/18 Clindamycin HCl 300 mg PO Q8H #20 capsule 04/15/18 Colchicine [Colchicine 0.6 mg Tablet] 0.6 mg PO DAILY #30 tablet 04/15/18 History of Present Illness History of Present Illness: HENRY NEIL is a 32 year old male patient with past medical history of bipolar disorder, schizophrenia, gout and tobacco dependence presented with 2 days history of left leg pain. He reports the pain is precipitated by walking. He denies any fever, chills, palpitation or diaphoresis. He states his count is in remission and he has not had attack in years. No headache, dizziness or blurring of vision. No nausea, vomiting, abdominal pain or diarrhea. His blood work shows leukocytosis with white cell count of 16.7 and elevated uric acid of 11.7. Hospital Course Hospital Course: This is 72 years old male patient admitted yesterday afternoon with chief complaint of left leg pain. Patient found to have cellulitis of the left leg and probable gout flare for which she was treated with was clindamycin and colchicine respectively. The swelling tenderness and erythema relatively subsided. Patient is stable enough to be discharged and continue the clindamycin and colchicine p.o. Physical Exam Vital Signs: Temp Pulse Resp BP Pulse Ox 97.9 F 82 18 119/75 100 04/15/18 11:32 04/15/18 11:32 04/15/18 11:32 04/15/18 11:32 04/15/18 11:32 Intake & Output 04/14/18 04/15/18 04/16/18 06:59 06:59 06:59 Intake Total 1970 Output Total 1400 Balance 570 Weight 132.8 kg General appearance: PRESENT: no acute distress Eye exam: PRESENT: conjunctiva pink Mouth exam: PRESENT: moist Neck exam: ABSENT: carotid bruit, JVD, lymphadenopathy, thyromegaly Respiratory exam: PRESENT: clear to auscultation jayjay. ABSENT: rales, rhonchi, wheezes Cardiovascular exam: PRESENT: RRR. ABSENT: diastolic murmur, rubs, systolic murmur GI/Abdominal exam: PRESENT: normal bowel sounds, soft. ABSENT: distended, guarding, mass, organolmegaly, rebound, tenderness Neurological exam: PRESENT: alert, awake, oriented to time, oriented to situation Psychiatric exam: PRESENT: normal mood Results Laboratory Results: 04/15/18 04:55 04/15/18 04/15/18 04:55 04:55 WBC 18.0 H RBC 4.33 L Hgb 12.9 L Hct 38.3 MCV 89 MCH 29.8 MCHC 33.7 RDW 13.3 Plt Count 399 Seg Neutrophils % 58.0 Lymphocytes % 33.0 Monocytes % 6.6 Eosinophils % 1.8 Basophils % 0.6 Absolute Neutrophils 10.4 H Absolute Lymphocytes 5.9 H Absolute Monocytes 1.2 Absolute Eosinophils 0.3 Absolute Basophils 0.1 Triglycerides 168 H Cholesterol 215.29 H LDL Cholesterol Direct 140 H VLDL Cholesterol 33.6 H HDL Cholesterol 42 Impressions: Foot X-Ray 04/14/18 08:29 IMPRESSION: MILD DEGENERATIVE CHANGES IN THE 1ST METATARSAL PHALANGEAL JOINT. NO EROSIONS. NO OTHER SIGNIFICANT FINDINGS. Qualifiers - * PATIENT BEING DISCHARGED WITH ANY OF THE FOLLOWING DIAGNOSIS: No
[2018-04-15] MEDS ORDERED: ATORVASTATIN CALCIUM 40 MG TABLET PO SCH (22:00)
== END 2018-04-15 14:55 | disposition home or self-care (01) | DRG 603 ==
LOC: ER 07:50 → EH 12:22 → 4N 15:22
PROVIDERS: ADMIT Internal Medicine; ATTEND Internal Medicine
DX: L03.116 Cellulitis of left lower limb (principal); M10.9 Gout, unspecified; F17.210 Nicotine dependence, cigarettes, uncomplicated; I10 Essential (primary) hypertension; D72.829 Elevated white blood cell count, unspecified; F25.0 Schizoaffective disorder, bipolar type; Z79.899 Other long term (current) drug therapy; Z88.8 Allergy status to other drugs, medicaments and biological substances
CPT/HCPCS: 36415; 80053; 80061; 80307; 83036; 83605; 84550; 85025; 86140; 87040; 93005; 93010; 93971; 94640; 96374; 99285; J0690; J1650; J3490; J7512